=== PATIENT | female | born 1985 | race Caucasian/White ===

== ENCOUNTER 2018-11-16 22:38 | Emergency (ER) | payer OTHER ==
[2018-11-16 22:49] VITALS: BP 121/74
--- NOTE | 2018-11-17 00:18 | ED Physician Documentation ---
History of Present Illness - Stated complaint Stated Complaint: DIZZINESS/COLD SX - Chief complaint Chief Complaint: General - History obtained from History obtained from: Patient - History of Present Illness Timing: How many days ago (3) Improved by: nothing Worsened by: coughing - Additonal information Additional information: c/o 3 days of nonproductive cough, chest discomfort (with coughing only), generalized headache, mild sinus congestion, chills and sweats. Review of Systems Constitutional: reports: Chills, Myalgias, Sweats, Other (unknown if fever, did not take temperature at home) Eyes: reports: Reviewed and negative Ears: denies: Ear pain Nose: reports: Congestion. denies: Sinus pressure / pain Throat: denies: Sore throat Cardiac: reports: Chest pain / pressure (with coughing only) Respiratory: reports: Cough. 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 HEENT: None Psych: None Musculoskeletal: None Derm: None - Past Surgical History Past Surgical History: No - Present Medications Home Medications: Ambulatory Orders Medication Instructions Recorded Confirmed guaiFENesin/CODEINE [Robitussin AC] 5 - 10 ml PO Q6H PRN #100 [facility] [place]18 - Allergies Allergies/Adverse Reactions: Allergies Allergy/AdvReac Type Severity Reaction Status Date / Time sulfamethoxazole AdvReac Unknown Verified 11/16/18 22:49 [From ] trimethoprim [From ] AdvReac Unknown Verified 11/16/18 22:49 - Social History Does the pt smoke?: No Smoking Status: Never smoker Does the pt drink ETOH?: Yes Does the pt have substance abuse?: No - Immunizations Immunizations are current?: Yes - POLST Patient has POLST: No PD ED PE NORMAL - Vitals Vital signs reviewed: Yes - General General: Alert and oriented X 3, No acute distress, Well developed/nourished - HEENT HEENT: Ears normal, Moist mucous membranes, Pharynx benign - Neck Neck: Supple, no meningeal sign - Cardiac Cardiac: RRR, No murmur - Respiratory Respiratory: No respiratory distress, Clear bilaterally - Extremities Extremities: No edema Results - Vitals Vitals: Oxygen O2 Source Room air - Labs Labs: Laboratory Tests 11/16/18 23:45 Influenza A (Rapid) Negative Influenza B (Rapid) Negative PD MEDICAL DECISION MAKING - ED course Complexity details: reviewed results, considered differential, d/w patient Departure - Departure Disposition: 01 Home, Self Care Clinical Impression: URI (upper respiratory infection) Condition: Good Instructions: ED Upper Resp Infec No Abx Tx Follow-Up: Rogelio Zhu ARNP [Primary Care Provider] - (3-4 days if not improving) Prescriptions: guaiFENesin/CODEINE [Robitussin AC] 5 - 10 ml PO Q6H PRN #100 [facility] PRN Reason: Cough Forms: Activity restrictions Discharge Date/Time: 11/17/18 00:49
[2018-11-17] MEDS ORDERED: guaiFENesin/CODEINE 5 ML UDC PO STA (00:33)
== END 2018-11-17 00:49 | disposition home or self-care (01) ==
LOC: ED 22:38
DX: J06.9 Acute upper respiratory infection, unspecified (principal)
CPT/HCPCS: 87275; 87276; 99283; A9270

== ENCOUNTER 2019-09-27 20:03 | Emergency (ER) | payer OTHER ==
--- NOTE | 2019-09-27 21:28 | ED Physician Documentation ---
PD HPI FOCAL NEURO - Stated complaint Stated Complaint: DIZZY - Chief complaint Chief Complaint: Neuro - History obtained from History obtained from: Patient - History of Present Illness Timing - onset: Other (She is had mild to spinning vertigo for the last couple of days that got much worse today. It is worse with rotation of her head and she is been nauseous. She has been trying Dramamine with partial relief. She never had vertigo before. No ear issues. She feels like her vision is swimming but denies visual deficits or diplopia. 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 HEENT: None Psych: None Musculoskeletal: None Derm: None - Past Surgical History Past Surgical History: No - Present Medications Home Medications: Ambulatory Orders Medication Instructions Recorded Confirmed Meclizine HCl 25 mg PO Q6H PRN #15 tab.chew 09/27/19 - Allergies Allergies/Adverse Reactions: Allergies Allergy/AdvReac Type Severity Reaction Status Date / Time sulfamethoxazole AdvReac Unknown Verified 09/27/19 20:16 [From ] trimethoprim [From ] AdvReac Unknown Verified 09/27/19 20:16 - Social History Does the pt smoke?: No Smoking Status: Never smoker Does the pt drink ETOH?: Yes Does the pt have substance abuse?: No - Immunizations Immunizations are current?: Yes - POLST Patient has POLST: No PD ED PE NORMAL - Vitals Vital signs reviewed: Yes - General General: Alert and oriented X 3, No acute distress - HEENT HEENT: PERRL, EOMI (With nystagmus laterally) - Neck Neck: Supple, no meningeal sign, No bony TTP - Cardiac Cardiac: RRR, No murmur - Respiratory Respiratory: No respiratory distress, Clear bilaterally - Abdomen Abdomen: Normal bowel sounds, Soft, Non tender - Back Back: No CVA TTP, No spinal TTP - Derm Derm: Normal color, Warm and dry - Extremities Extremities: No edema, No calf tenderness / cord - Neuro Neuro: Alert and oriented X 3, Normal speech, Other (She was Coreen-Hallpike positive, trialed and Marquise without relief.) - Psych Psych: Normal mood, Normal affect NIHSS - Time Time: 21:20 - Level of Consciousness Level of consciousness: (0) Alert, Keenly responsive LOC Questions: (0) Answers both Q's correct LOC Commands: (0) Performs both correctly - Gaze Best Gaze: (0) Normal - Visual Visual: (0) No loss - Facial Palsy Facial Palsy: (0) Normal, symmetrical movement - Motor Arms (both separate) Motor Arm (right): (0) No drift Motor Arm (left): (0) No drift - Motor Legs (both separate) Motor Leg (right): (0) No drift Motor Leg (left): (0) No drift - Limb Ataxia Limb Ataxia: (0) Absent - Sensory Sensory: (0) Normal - Best Language Best Language: (0) No aphasia - Dysarthria Dysarthria: (0) Normal - Extinction and Inattention (formally neg Extinction and inattention: (0) No abnormality - Total Score/Results Total Score/Result: 0 Results - Vitals Vitals: Vital Signs - 24 hr 09/27/19 09/27/19 20:13 21:54 Temperature 37 C Heart Rate 76 69 Respiratory 18 16 Rate Blood Pressure 120/75 113/74 O2 Saturation 97 98 Oxygen O2 Source Room air - Rads (name of study) CT Head Radiology: EMP read contemporaneously (NAD) PD MEDICAL DECISION MAKING - ED course ED course: 34-year-old woman with apparently peripheral vertigo, out of a abundance of caution a CT of the head was done without pertinent positive findings. She was ambulatory in the heath without issue. Departure - Departure Disposition: Home, Self Care Clinical Impression: Vertigo Condition: Good Record reviewed to determine appropriate education?: Yes Instructions: ED Vertigo Unspecified Prescriptions: Meclizine HCl 25 mg PO Q6H PRN #15 tab.chew PRN Reason: Dizziness Comments: Return if you develop any new or worsening symptoms including but not limited to weakness, numbness, tingling, double vision, headache. Follow-up with your doctor for recheck regardless. Forms: Activity restrictions
[2019-09-27 21:55] VITALS: BP 113/74
--- NOTE | 2019-09-27 21:59 | CT Report ---
Reason: vertigo Procedure Date: 09/27/2019 Accession Number: [id number] / [id number] Procedure: CT - HEAD WO CPT Code: Final Report FULL RESULT: EXAM: CT HEAD EXAM DATE: 09/27/2019 09:41 PM. CLINICAL HISTORY: Vertigo, nausea for 3 Days. COMPARISON: None. TECHNIQUE: Multiaxial CT images were obtained from the foramen magnum to the vertex. Reformats: Sagittal and coronal. IV contrast: None. In accordance with CT protocol optimization, one or more of the following dose reduction techniques were utilized for this exam: automated exposure control, adjustment of mA and/or KV based on patient size, or use of iterative reconstructive technique. FINDINGS: Parenchyma: No intraparenchymal hemorrhage. No evidence of mass, midline shift, or CT findings of infarction. Cook-white differentiation is distinct. Extraaxial Spaces: Normal for age. No subdural or epidural collections identified. Ventricles: Normal in size and position. Sinuses and Orbits: Imaged paranasal sinuses, orbits, and mastoids show no significant abnormality. Bones: No evidence of fracture or calvarial defect. Other: None. IMPRESSION: Normal head CT. RADIA
[2019-09-27] MEDS ORDERED: MECLIZINE 12.5 MG TABLET PO STA (22:15)
== END 2019-09-27 22:34 | disposition home or self-care (01) ==
LOC: ED 20:03
DX: H81.399 Other peripheral vertigo, unspecified ear (principal)
CPT/HCPCS: 70450; 93005; 99284; A9270